=== PATIENT | female | born 1995 | race Caucasian/White ===

== ENCOUNTER 2017-08-22 19:50 | Emergency (ER) | payer BC ==
[2017-08-22 19:56] VITALS: BP 134/80; PULSE 71; TEMP 98.9; BMI 26.9
--- NOTE | 2017-08-22 20:08 | PDOC ---
History of Present Illness - General History Source: Patient Exam Limitations: No Limitations - History of Present Illness Initial Comments: 08/22/17 21:53 22 year old female, with no significant past medical history, who presents to the emergency room complaining of vaginal burning and itchiness s/p Turkmen wax on , 4 days ago. The patient reports that irritation started the day after the wax and progressively worsened into today. She states that she applied antibiotic ointment to the area this morning, which provided some relief. She notes that she has gotten waxed at the same place previously without any irritation. She believes they used the same wax and materials that they used in the past. She denies use of any new soap, detergent, or fragrances. Denies fever, chills. Denies vaginal discharge. Denies dysuria, hematuria. She notes that her menses started today. Allergies: NKDA, peanut <Ivone Whittington - Last Filed: 08/22/17 21:53> <Meri Reina - Last Filed: 08/23/17 03:27> - General Chief Complaint: Pain, Acute Stated Complaint: PAIN FROM BRAZILLIAN WAX, BURNING ON URINATION Time Seen by Provider: 08/22/17 19:54 Past History <Ivone Whittington - Last Filed: 08/22/17 21:53> - Past Medical History COPD: No Other medical history: DENIES - Immunization History Immunization Up to Date: Yes - Suicide/Smoking/Psychosocial Hx Smoking History: Never smoked Have you smoked in the past 12 months: No Information on smoking cessation initiated: No Hx Alcohol Use: Yes (OCCAS.) Drug/Substance Use Hx: No Substance Use Type: None <Meri Reina - Last Filed: 08/23/17 03:27> - Past Medical History Allergies/Adverse Reactions: Allergies Allergy/AdvReac Type Severity Reaction Status Date / Time peanut Allergy Verified 08/22/17 19:51 Home Medications: Ambulatory Orders No Home Medications 0 dose .ROUTE UTDICT 02/18/14 Triamcinolone 0.5% Cream [Aristocort 0.5% Cream -] 1 applic TP BID #1 tube 08/22 Review of Systems - Review of Systems Able to Perform ROS?: Yes Comments:: 08/22/17 21:54 GENERAL/CONSTITUTIONAL: No fever or chills. No weakness. HEAD, EYES, EARS, NOSE AND THROAT: No change in vision. No ear pain or discharge. No sore throat. CARDIOVASCULAR: No chest pain or shortness of breath. RESPIRATORY: No cough, wheezing, or hemoptysis. GASTROINTESTINAL: No nausea, vomiting, diarrhea or constipation. GENITOURINARY: +vaginal irritation, burning, and itching. No dysuria, frequency , or change in urination. MUSCULOSKELETAL: No joint or muscle swelling or pain. No neck or back pain. SKIN: No rash NEUROLOGIC: No headache, vertigo, loss of consciousness, or change in strength/ sensation. ENDOCRINE: No increased thirst. No abnormal weight change. HEMATOLOGIC/LYMPHATIC: No anemia, easy bleeding, or history of blood clots. ALLERGIC/IMMUNOLOGIC: No hives or skin allergy. <Ivone Whittington - Last Filed: 08/22/17 21:53> *Physical Exam - Vital Signs Last Vital Signs Temp Pulse Resp BP Pulse Ox 98.9 F 71 16 134/80 100 08/22/17 19:53 08/22/17 19:53 08/22/17 19:53 08/22/17 19:53 08/22/17 19:53 - Physical Exam Comments: 08/22/17 21:54 GENERAL: Awake, alert, and fully oriented, in no acute distress HEAD: No signs of trauma EYES: PERRLA, EOMI, sclera anicteric, conjunctiva clear HEART: Regular rate and rhythm, normal S1 and S2, no murmurs, rubs or gallops ABDOMEN: Soft, nontender, normoactive bowel sounds. No guarding, no rebound. No masses PELVIC: There are bilateral 2mm shallow erosions on posterior aspects of the external labia without edema or purulent drainage. Internally, there is moderate erythema without discharge. No lesions. Nonedematous. NEUROLOGICAL: Cranial nerves II through XII grossly intact. Normal speech, normal gait SKIN: Warm, Dry, normal turgor, no rashes or lesions noted. <Ivone Whittington - Last Filed: 08/22/17 21:53> - Vital Signs Last Vital Signs Temp Pulse Resp BP Pulse Ox 98.9 F 71 16 134/80 100 08/22/17 19:53 08/22/17 19:53 08/22/17 19:53 08/22/17 19:53 08/22/17 19:53 <Meri Reina - Last Filed: 08/23/17 03:27> ED Treatment Course - ADDITIONAL ORDERS Additional order review: Laboratory Results 08/22/17 08/22/17 20:00 19:56 Urine Color Yellow Urine Appearance Hazy Urine pH 7.0 Ur Specific [place] 1.025 Urine Protein 1+ H Urine Glucose (UA) Negative Urine Ketones Negative Urine Blood 3+ H Urine Nitrite Negative Urine Bilirubin Negative Urine Urobilinogen 0.2 Ur Leukocyte Esterase Trace H Urine RBC 40-60 Urine WBC 2-5 Ur Epithelial Cells Few Urine Bacteria Few Urine HCG, Qual Negative <Ivone Whittington - Last Filed: 08/22/17 21:53> Medical Decision Making - Medical Decision Making Documentation has been prepared under my direction and personally reviewed by me in its entirety. I attest that this documented accurately reflects all work, treatment, procedures and medical decision making performed by me. As noted above, this 22-year-old woman presents with painful areas of the external genitalia secondary to waxing procedures to remove hair . Of note, there was no change in material used or technique used (patient describes going to the same salon for this treatment many times previously). Exam as noted with shallow erosions of the external labia without vesicles or cellulitis/ fluctuance. Introitus was mildly inflamed without lesions/exudate. Patient states that she has standing prescription for antifungal cream prescribed by her label coder that she can fill at her pharmacy. Patient will have 0.5% triamcinolone cream to be used on external genitalia for apparent irritant contact dermatitis. She should also use the antifungal cream along the inner labia. Follow-up with patient's label coder should be within the next 5 days. She should return to the ER if she has worsening symptoms <Meri Reina - Last Filed: 08/23/17 03:27> *DC/Admit/Observation/Transfer - Attestations Scribe Attestion: 08/22/17 21:56 Documentation prepared by STAN Montes De Oca, acting as medical photographer for Meri Reina MD/DO. <Ivone Whittington - Last Filed: 08/22/17 21:53> <Meri Reina - Last Filed: 08/23/17 03:27> Diagnosis at time of Disposition: Irritant contact dermatitis of female genitalia - Discharge Dispostion Disposition: HOME Condition at time of disposition: Stable - Prescriptions Prescriptions: Triamcinolone 0.5% Cream [Aristocort 0.5% Cream -] 1 applic TP BID #1 tube - Patient Instructions Printed Discharge Instructions: DI for Contact Dermatitis Additional Instructions: Triamcinolone cream 0.5% twice a day to irritated area on outside Cool compresses to area as needed Use anti-yeast cream as previously prescribed to inside irritated area Return to ER if you have worsening pain/swelling/redness Follow-up with your label coder or general doctor within the next 5 days
[2017-08-22 20:15] LABS: URINE APPEARANCE HAZY; URINE BILIRUBIN NEGATIVE (NEGATIVE); URINE BLOOD 3+ (NEGATIVE); URINE COLOR YELLOW; URINE GLUCOSE (UA) NEGATIVE (NEGATIVE); URINE KETONE NEGATIVE (NEGATIVE)
[2017-08-22 20:16] LABS: URINE LEUK ESTERASE TRACE (NEGATIVE); URINE NITRITE NEGATIVE (NEGATIVE); URINE PROTEIN 1+ (NEGATIVE); URINE UROBILINOGEN 0.2 (0.2-1.0)
[2017-08-22 20:38] LABS: URINE BACTERIA FEW /hpf (NEGATIVE); URINE RBC 40-60 /hpf (0-3)
== END 2017-08-22 21:55 | disposition home or self-care (01) ==
LOC: FER 19:50
DX: L24.9 Irritant contact dermatitis, unspecified cause (principal)
CPT/HCPCS: 81003; 81015; 84703; 99281-25

== ENCOUNTER 2018-07-09 16:55 | Emergency (ER) | payer BC ==
[2018-07-09 17:24] VITALS: BP 143/88; PULSE 78; TEMP 99.3; BMI 26.8
--- NOTE | 2018-07-09 18:23 | PDOC ---
History of Present Illness - General Chief Complaint: Rash Stated Complaint: ALLERGIC REACTION Time Seen by Provider: 07/09/18 18:20 History Source: Patient Exam Limitations: No Limitations - History of Present Illness Initial Comments: 07/09/18 18:49 Patient came for evaluation worsening discrete lesions that are pruritic in nature. Thought may be a mosquito bite as had one lesion to her forehead last week. That resolved but patient states had an outbreak of more lesions to her right arm and noted some at her waist line. Was concerned about it being bedbugs but did a thorough investigation of her room at her bed and did not identify any insects. Sleeps with sister who has no insect bites either. Denies fever, shortness of breath, wheezing or facial swelling. Has used Benadryl with minimal resolved. Timing/Duration: reports: getting worse Severity: Yes: mild, moderate Location: reports: extremities, generalized Modifying Factors: improves with: antihistamine Associated Symptoms: reports: denies symptoms Past History - Travel Traveled outside of the country in the last 30 days: No Close contact w/someone who was outside of country & ill: No - Past Medical History Allergies/Adverse Reactions: Allergies Allergy/AdvReac Type Severity Reaction Status Date / Time peanut Allergy Verified 07/09/18 17:24 Home Medications: Ambulatory Orders No Home Medications 0 dose .ROUTE UTDICT 02/18/14 Triamcinolone 0.5% Cream [Aristocort 0.5% Cream -] 1 applic TP BID #1 tube 08/22 Anemia: Yes COPD: No - Immunization History Immunization Up to Date: Yes - Suicide/Smoking/Psychosocial Hx Smoking History: Never smoked Have you smoked in the past 12 months: No Hx Alcohol Use: Yes (OCCAS.) Drug/Substance Use Hx: No Substance Use Type: None Review of Systems - Review of Systems Able to Perform ROS?: Yes Is the patient limited Georgian proficient: Yes Constitutional: Yes: Symptoms Reported, See HPI. No: Chills, Fever, Malaise HEENTM: Yes: See HPI. No: Symptoms Reported, Eye Pain, Nose Pain, Nose Congestion, Throat Swelling, Difficulty Swallowing, Mouth Swelling Respiratory: Yes: See HPI. No: Symptoms reported, Cough Musculoskeletal: Yes: Symptoms Reported, See HPI Integumentary: Yes: See HPI, Erythema, Pruritus, Rash. No: Symptoms Reported All Other Systems: Reviewed and Negative *Physical Exam - Vital Signs Last Vital Signs Temp Pulse Resp BP Pulse Ox 99.3 F 78 18 143/88 99 07/09/18 17:22 07/09/18 17:22 07/09/18 17:22 07/09/18 17:22 07/09/18 17:22 - Physical Exam General Appearance: Yes: Nourished, Appropriately Dressed, Apparent Distress, Mild Distress HEENT: positive: BRYAN (swelling, redness angioedema or swelling swelling to airway.), Normal ENT Inspection, TMs Normal, Pharynx Normal Neck: positive: Supple. negative: Tender Respiratory/Chest: positive: Lungs Clear, Normal Breath Sounds Cardiovascular: positive: Regular Rhythm Gastrointestinal/Abdominal: positive: Soft. negative: Tender Extremity: positive: Normal Capillary Refill Integumentary: positive: Normal Color, Erythema, Rash Neurologic: positive: city attorney II-XII NML intact, Fully Oriented, Alert, Normal Mood/ Affect, Normal Response, Motor Strength 5/5 Progress Note - Progress Note Progress Note: insect bites, no anaphylaxis, infectious, infected. *DC/Admit/Observation/Transfer Diagnosis at time of Disposition: Insect bites and stings Qualifiers: Encounter type: initial encounter Qualified Code(s): W57.XXXA - Bitten or stung by nonvenomous insect and other nonvenomous arthropods, initial encounter - Discharge Dispostion Disposition: HOME Condition at time of disposition: Stable Decision to Admit order: No - Referrals Referrals: Feliz Arango [Primary Care Provider] - - Patient Instructions Printed Discharge Instructions: DI for Insect Bites and Stings Additional Instructions: Rest, keep cool and dry- avoid strenuous activity or hot /humid environments Less hot showers, no abrasive soaps May use ice packs, cool cloth on itching lesions May use heavy creams like Eucerin or Cetaphil to keep skin moist May apply Aveeno, calamine lotion, [id number] hydrocortisone creams as needed for symptoms May use Benadryl at night for antihistamine, Zyrtec/ Karen or Claritin for daytime antihistamine use to help with itching A use aloe vera gel to help assist with itching and inflammatory response May use [id number] hydrocortisone cream on all areas except face Try to identify cause for rash and avoid exposures Be sure to use insect sprays/repellent, ones with DEET are the most effective when outdoors Followup with PMD in one week if no resolution Make appointment with retail account executive for evaluation when possible Return to emergency department for worsening swelling, pus or purulent drainage from areas or any changes with swelling to lips, tongue, face or breathing problems from ALLERGIC reaction. - Post Discharge Activity Forms/Work/School Notes: Back to Work
== END 2018-07-09 19:00 | disposition home or self-care (01) ==
LOC: JERFT 16:55
DX: S00.86XA Insect bite (nonvenomous) of other part of head, initial encounter (principal); S40.861A Insect bite (nonvenomous) of right upper arm, initial encounter; S30.861A Insect bite (nonvenomous) of abdominal wall, initial encounter; W57.XXXA Bitten or stung by nonvenomous insect and other nonvenomous arthropods, initial encounter; Y93.89 Activity, other specified; Y92.038 Other place in apartment as the place of occurrence of the external cause; Y99.8 Other external cause status
CPT/HCPCS: 99281-25

== ENCOUNTER 2019-05-17 07:34 | Emergency (ER) | payer BC, OTHER ==
[2019-05-17 07:50] VITALS: BMI 28.4
[2019-05-17] MEDS ORDERED: ACETAMINOPHEN 1000 MG/100 ML VIAL (NON FORMULARY) IVPB ONE (08:17)
[2019-05-17] MEDS ORDERED: ACETAMINOPHEN INJECTION 100 ML IVPB ONE (08:39)
--- NOTE | 2019-05-17 08:54 | PDOC ---
History of Present Illness - General Chief Complaint: Pain Stated Complaint: ABD PAIN Time Seen by Provider: 05/17/19 07:58 History Source: Patient Exam Limitations: No Limitations Past History - Past Medical History Allergies/Adverse Reactions: Allergies Allergy/AdvReac Type Severity Reaction Status Date / Time peanut Allergy Verified 05/17/19 07:46 Home Medications: Ambulatory Orders No Home Medications 0 dose .ROUTE UTDICT 02/18/14 Anemia: Yes COPD: No Psychiatric Problems: Yes (depression,anxiety) - Immunization History Immunization Up to Date: Yes - Suicide/Smoking/Psychosocial Hx Smoking History: Current some day smoker Have you smoked in the past 12 months: No Information on smoking cessation initiated: No Hx Alcohol Use: No Drug/Substance Use Hx: No Substance Use Type: None *Physical Exam - Vital Signs Last Vital Signs Temp Pulse Resp BP Pulse Ox 98.5 F 71 19 114/70 100 05/17/19 07:44 05/17/19 07:44 05/17/19 07:44 05/17/19 07:44 05/17/19 07:44 - Physical Exam General Appearance: No: Apparent Distress Respiratory/Chest: positive: Lungs Clear, Normal Breath Sounds. negative: Respiratory Distress Cardiovascular: positive: Regular Rhythm, Regular Rate, S1, S2. negative: Murmur Female Pelvic Exam: positive: other (IUD noted in place). negative: CMT, discharge, adnexal tenderness, vaginal bleeding Gastrointestinal/Abdominal: positive: Tender (generalized, greatest along suprapubic/LLQ region), Soft. negative: Distended, Guarding, Rebound, Mass Neurologic: positive: Alert, Normal Mood/Affect ED Treatment Course - LABORATORY CBC & Chemistry Diagram: 05/17/19 08:50 05/17/19 08:50 Medical Decision Making - Medical Decision Making 23 y/o F hx of anxiety, depression, anemia presents with generalized abd pain x 1 month along with nausea worsening last night; initially was more lower abdomen , but now more diffuse in nature. Initially thought her pain was related to her ovaries and saw her implementation services analyst 1 month ago who did pelvic exam and told her everything was fine. Has been taking Motrin without much relief of pain. Also with intermittent loose stools x 1.5 weeks. Is sexually active with 1 partner; no prior hx of STDs. Denies fever, sob, cp, vomiting, urinary complaints, unusual vaginal discharge. Has IUD (Mirena) in place x 2 months. Hx of liposuction 1 year ago; denies other surgeries. Consider appendicitis/UTI Not suspicious for pelvic pathology given pelvic exam unremarkable Plan: Labs, pain control, reassess 05/17/19 08:48 Labs unremarkable 1+ blood in urine likely as patient states has slight vaginal spotting since getting IUD in place On repeat exam, patient still with generalized abdominal TTP Will get CT A/P to r/u further acute pathology 05/17/19 10:17 CT only notable for small amount of free fluid, likely related to recent ovarian cyst rupture; no other acute findings noted Patient given copy of CT report stable for dc 05/17/19 12:20 *DC/Admit/Observation/Transfer Diagnosis at time of Disposition: Generalized abdominal pain - Discharge Dispostion Disposition: HOME Condition at time of disposition: Stable Decision to Admit order: No - Referrals Referrals: Feliz Arango [Primary Care Provider] - 2 Days - Patient Instructions Printed Discharge Instructions: DI for Abdominal Pain-Adult Additional Instructions: Thank you for choosing [facility]. It was a pleasure taking care of you. Your labs were unremarkable Your CT scan of abdomen/pelvis only showed small fluid in pelvis, likely related to cyst rupture Follow-up with your regular doctor and implementation services analyst Return to the Emergency Department if your symptoms worsen or persist, you have fever, shortness of breath, chest pain, severe abdominal pain, vomiting or other concerning symptoms. - Post Discharge Activity
[2019-05-17 09:20] LABS: EPI CELLS 4.1 /HPF (0-5/HPF); HYALINE CASTS 2 /lpf (0-8); PH,URINE 6.5 (5.0-8.0); URINE APPEARANCE CLEAR; URINE BILIRUBIN NEGATIVE (NEGATIVE); URINE COLOR YELLOW; URINE GLUCOSE (UA) NEGATIVE (NEGATIVE); URINE KETONE NEGATIVE (NEGATIVE); URINE LEUK ESTERASE NEGATIVE (NEGATIVE); URINE NITRITE NEGATIVE (NEGATIVE); URINE PROTEIN NEGATIVE (NEGATIVE); URINE RBC 0 /hpf (0-4); URINE UROBILINOGEN 0.2 mg/dL (0.2-1.0); URINE WBC 1 /hpf (0-5)
[2019-05-17 09:30] LABS: ALBUMIN 3.8 g/dl (3.4-5.0); BILIRUBIN,TOTAL 0.6 mg/dL (0.2-1); BLOOD UREA NITROGEN 9.5 mg/dL (7-18); CREATININE 0.8 mg/dL (0.55-1.3); POTASSIUM 4.2 mmol/L (3.5-5.1); TOT PROT 6.9 g/dl (6.4-8.2)
[2019-05-17 09:34] LABS: HCG,QUALITATIVE URINE Negative
[2019-05-17 09:44] LABS: BASO % 0.4 % (0-2.0); EOS % 1.9 % (0-4.5); HEMATOCRIT 42.4 % (32.4-45.2); HEMOGLOBIN 14.2 GM/dL (10.7-15.3); LYMPH % 42.2 % (8-40); MCH 30.5 pg (25.7-33.7); MCHC 33.4 g/dl (32.0-36.0); MEAN CELL VOLUME 91.3 fl (80-96); MEAN PLT VOLUME 9.3 fl (7.5-11.1); MONO % 5.8 % (3.8-10.2); NEUT % 49.7 % (42.8-82.8); PLATELET COUNT 170 K/MM3 (134-434); RBC 4.64 M/mm3 (3.60-5.2); RDW 12.7 % (11.6-15.6); WHITE BLOOD COUNT 5.9 K/mm3 (4.0-10.0)
[2019-05-17] MEDS ORDERED: morphine CARPU-JECT 4 MG/1 ML DISP.SYRIN IVPUSH ONE (09:56)
[2019-05-17] MEDS ORDERED: morphine SULFATE 4 MG/ML VIAL ONE (10:02)
[2019-05-17 12:23] VITALS: BP 122/79; PULSE 55; TEMP 98.4
== END 2019-05-17 12:44 | disposition home or self-care (01) ==
LOC: JER 07:34
PROC: 3E033NZ Introduction of Analgesics, Hypnotics, Sedatives into Peripheral Vein, Percutaneous Approach (ICD-10-PCS; principal; 2019-05-17)
PROC: 3E033NZ Introduction of Analgesics, Hypnotics, Sedatives into Peripheral Vein, Percutaneous Approach (ICD-10-PCS; 2019-05-17)
DX: R10.84 Generalized abdominal pain (principal); Z97.5 Presence of (intrauterine) contraceptive device
CPT/HCPCS: 36415; 74177-TC; 80053; 81003; 84703; 85025; 99283-25; J0131

== ENCOUNTER 2019-11-12 23:06 | Emergency (ER) | payer OTHER ==
[2019-11-12 23:26] VITALS: BP 126/83; PULSE 73; TEMP 97; BMI 28.1
[2019-11-13] MEDS ORDERED: DEXAMETHASONE SOD PHOSPHATE 10 MG/1 ML VIAL IM ONE (00:45)
[2019-11-13] MEDS ORDERED: diphenhydrAMINE HCL 50 MG CAPSULE PO ONE (00:47)
[2019-11-13] MEDS ORDERED: DEXAMETHASONE SOD PHOSPHATE 10 MG/1 ML VIAL ONE (01:04)
[2019-11-13] MEDS ORDERED: diphenhydrAMINE HCL 25 MG CAPSULE (FP) PO ONE (01:05)
--- NOTE | 2019-11-13 01:06 | PDOC ---
Documentation entered by Rocky High SCRIBE, acting as scribe for Kanika Paulson MD. Kanika Paulson MD: This documentation has been prepared by the Anila jo Angel, SCRIBE, under my direction and personally reviewed by me in its entirety. I confirm that the documentation accurately reflects all work, treatment, procedures, and medical decision making performed by me. Attending Attestation - Resident Resident Name: Adalberto Tanner - ED Attending Attestation I have performed the following: I have examined & evaluated the patient, The case was reviewed & discussed with the resident, I agree w/resident's findings & plan, Exceptions are as noted - HPI HPI: 11/13/19 01:05 24-year-old female came in because she felt that her face was swollen and she had a history of peanut allergy in the past She is not in any respiratory distress She has no visible hives but she does have some erythema on her hands and anterior chest, no wheals no stridor no drooling tolerating p.o.'s - Physicial Exam PE: 11/13/19 01:06 Well-nourished well-developed 24-year-old female in no acute distress head normocephalic atraumatic Neck supple Lungs are clear to auscultation bilaterally cvs [id number] Skin No wheals or hives or vesicles appreciated Extremities there is some erythema from scratching on her hands Abdomen is soft nontender Extremities there is no edema Neuro alert and oriented x3 ambulating with ease no gross focal neuro deficits - Medical Decision Making 11/13/19 01:13 Vital signs are stable, normotensive, she us 100% on room air Benign exam, lungs are clear, regular rate and rhythm Patient has no respiratory distress, she is speaking in a clear voice, she has no hot potato voice ,she has no problems handling her secretions 11/13/19 02:01 there are n concerning signs or symptoms at this time Pt has IUD and does not want to stay for preg test results imp skin pruritus d/c home
--- NOTE | 2019-11-13 01:14 | PDOC ---
History of Present Illness - General Chief Complaint: Allergic Reaction Stated Complaint: ALLERGIC REACTION & SOB Time Seen by Provider: 11/13/19 00:46 History Source: Patient Exam Limitations: No Limitations - History of Present Illness Initial Comments: 11/13/19 02:18 24 yo female pmh peanut allergy with EPI pen presents to the ED with 18 hours of hand and chest rash, swelling, burning and swelling to the face. Pt states the symptoms began around 7 am, denies eating new foods, new soaps/creams , new detergents, denies drooling, SOB, tongue swelling. Pt has not ever used an epi pen in the past. Denies CP, abdominal pain, changes in bowel or bladder habits. Past History - Past Medical History Allergies/Adverse Reactions: Allergies Allergy/AdvReac Type Severity Reaction Status Date / Time peanut Allergy Verified 11/12/19 23:22 Home Medications: Ambulatory Orders No Home Medications 0 dose .ROUTE UTDICT 02/18/14 EPINEPHrine (EPI-PEN 0.3MG) [Epipen 0.3MG -] 0.3 mg IM ASDIR #2 pens 11/13/19 Anemia: Yes COPD: No Psychiatric Problems: Yes (depression,anxiety) - Immunization History Immunization Up to Date: Yes - Psycho Social/Smoking Cessation Hx Smoking History: Never smoked Have you smoked in the past 12 months: No Hx Alcohol Use: No Drug/Substance Use Hx: No Substance Use Type: None Review of Systems - Review of Systems Constitutional: Yes: See HPI HEENTM: Yes: See HPI Respiratory: Yes: See HPI Cardiac (ROS): Yes: See HPI ABD/GI: Yes: See HPI : Yes: See HPI Musculoskeletal: Yes: See HPI Integumentary: Yes: See HPI Neurological: Yes: See HPI *Physical Exam - Vital Signs Last Vital Signs Temp Pulse Resp BP Pulse Ox 97.0 F L 73 20 126/83 100 11/12/19 23:23 11/12/19 23:23 11/12/19 23:23 11/12/19 23:23 11/12/19 23:23 - Physical Exam General Appearance: Yes: Nourished, Appropriately Dressed. No: Apparent Distress HEENT: positive: EOMI, BRYAN, Normal Voice, Pharynx Normal, Other (no uvula swelling, no tongue or lip swelling, no drooling, no stridor) Neck: positive: Supple. negative: Carotid bruit Respiratory/Chest: positive: Lungs Clear, Normal Breath Sounds. negative: Respiratory Distress, Accessory Muscle Use, Rapid RR, Crackles, Rales, Rhonchi, Stridor, Wheezing Cardiovascular: positive: Regular Rhythm, Regular Rate, S1, S2. negative: Edema , JVD, Murmur Vascular Pulses: Dorsalis-Pedis (R): 4+, Doralis-Pedis (L): 4+ Gastrointestinal/Abdominal: positive: Flat, Soft. negative: Pulsatile Mass, Protuberent, Distended, Guarding, Rebound, Tenderness Musculoskeletal: negative: CVA Tenderness Extremity: positive: Normal Capillary Refill, Normal Inspection, Normal Range of Motion Integumentary: positive: Normal Color, Dry, Warm, Hives, Rash Neurologic: positive: Fully Oriented, Alert, Normal Mood/Affect, Normal Response Medical Decision Making - Medical Decision Making 24 yo female pmh peanut allergy with EPI pen presents to the ED with 18 hours of hand and chest rash, swelling, burning and swelling to the face. Pt states the symptoms began around 7 am, denies eating new foods, new soaps/creams , new detergents, denies drooling, SOB, tongue swelling. Pt has not ever used an epi pen in the past. Denies CP, abdominal pain, changes in bowel or bladder habits. vitals WNL no airway compromise noted on exam rash and swelling noted to hands and chest will give benadryl and decadron 11/13/19 02:03 Symptoms resolve after medication Sent EPI to pharmacy and pt to F/U with home cupola mechanic, Strict return precautions for anaphylaxis given Pt has IUD placed and states she is not concerned about test, denies preg test Pt agrees with DC plans Discharge - Discharge Information Problems reviewed: Yes Clinical Impression/Diagnosis: Allergic reaction Condition: Stable Disposition: HOME - Admission No - Additional Discharge Information Prescriptions: EPINEPHrine (EPI-PEN 0.3MG) [Epipen 0.3MG -] 0.3 mg IM ASDIR #2 pens - Follow up/Referral Referrals: Feliz Arango [Primary Care Provider] - Haja Levine MD [Staff Physician] - - Patient Discharge Instructions Patient Printed Discharge Instructions: Allergy Testing, DI for Anaphylaxis, DI for General Allergic Reactions Additional Instructions: Please see your Primary Doctor and the Sleeve Setter Lockstitch referred to you within the next 48 hours. Read the documents provided to you regarding allergies. Return to the ER immediately for new or concerning symptoms including but not limited to: difficulty breathing, difficulty swallowing, drooling, tongue swelling. Thank you - Post Discharge Activity
== END 2019-11-13 02:12 | disposition home or self-care (01) ==
LOC: JER 23:06
PROC: 3E0233Z Introduction of Anti-inflammatory into Muscle, Percutaneous Approach (ICD-10-PCS; principal; 2019-11-12)
DX: T78.40XA Allergy, unspecified, initial encounter (principal); X58.XXXA Exposure to other specified factors, initial encounter; Z91.010 Allergy to peanuts
CPT/HCPCS: 96372; 99284-25; J1100

== ENCOUNTER 2024-03-24 00:13 | Emergency (ER) | payer OTHER ==
[2024-03-24] MEDS ORDERED: NAPROXEN 500 MG TABLET ONE (00:33)
[2024-03-24] MEDS: NAPROXEN 500 MG TABLET PO ONE (00:34)
[2024-03-24 00:40] VITALS: BP 120/70; PULSE 73; RESP 16; TEMP 99.5; BMI 28.3
== END 2024-03-24 00:46 | disposition home or self-care (01) ==
LOC: FER 00:13
DX: R60.0 Localized edema (principal)
CPT/HCPCS: 99283-25